=== PATIENT | male | born 1950 | race Caucasian/White ===

== ENCOUNTER 2016-10-21 12:45 | Emergency (ER) | payer OTHER, MEDICAID ==
[~2016-10-21] VITALS: Ht 170.2 cm; Wt 70.0 kg
[~2016-10-21 12:45] MED LIST: ASPI81 PO; ATOR10 PO; INDO50CA PO; LOSA25 PO; NEXI20CA PO; WARF5 PO
[2016-10-21 12:55] VITALS: BP 194/92; PULSE 62; RESP 19; TEMP 98.2; O2SAT 99
[2016-10-21] MEDS ORDERED: TETANUS/DIPHTHERIA TOXOID ADULT 0.5 ML VIAL IM ONE (13:15)
[2016-10-21 13:40] VITALS: BP 186/89; PULSE 64; RESP 18; O2SAT 97
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
[2016-10-21] MEDS ORDERED: LIDOCAINE HCL 1% 50 ML VIAL INFIL ONE (14:00)
[2016-10-21] MEDS ORDERED: LIDOCAINE 2%/EPINEPHrine 1:100,000 30ML MDV INFIL ONE (14:00)
--- NOTE | 2016-10-21 14:29 | PD ---
Physical Exam Narrative I was asked by Dr. Kat repair patient's laceration. Please see her documentation for full H&P. Data Data Last Documented VS Vital Signs Date Time Temp Pulse Resp B/P Pulse Ox O2 Delivery O2 Flow Rate FiO2 10/21/16 13:40 64 18 186/89 97 Room Air 10/21/16 12:55 98.2 Orders Tetanus/Diphtheria Tox Adult (Tetanus/Di (10/21/16 13:15) Lidocai-Epi 2%-1:100,000 Inj (Xylocaine- (10/21/16 14:00) Lidocaine 1% Inj (50 Ml) (Xylocaine 1% I (10/21/16 14:00) MDM Supervised Visit with MITCHEL: No Procedures Procedure Narrative LACERATION REPAIR LOCATION: Scalp LENGTH: Approximately 7.5 cm in total length highly irregular shaped NUMBER OF STITCHES/LUIS: 9 [place] REPAIR: Verbal consent was obtained. The area of the laceration was cleaned and prepped. The laceration was infiltrated with lidocaine without epi. The wound was copiously irrigated and explored without evidence of foreign body, bony involvement, ligament injury, tendon injury, or neurovascular injury. The wound was closed using luis. This was a single layer repair. A sterile dressing was applied by nurse. The patient was advised to keep the affected area as clean and dry as possible using soap and water. There were no complications. Patient tolerated the procedure well. LACERATION REPAIR LOCATION: Scalp LENGTH: Approximately 2.5 cm in total length NUMBER OF STITCHES/LUIS: 3 [place] REPAIR: Verbal consent was obtained. The area of the laceration was cleaned and prepped. The laceration was infiltrated with lidocaine without epi. The wound was copiously irrigated and explored without evidence of foreign body, bony involvement, ligament injury, tendon injury, or neurovascular injury. The wound was closed using luis. This was a single layer repair. A sterile dressing was applied by nurse. The patient was advised to keep the affected area as clean and dry as possible using soap and water. There were no complications. Patient tolerated the procedure well. LACERATION REPAIR LOCATION: Left lateral elbow LENGTH: Approximately 1.5 cm in total length NUMBER OF STITCHES/LUIS: 2 [place] REPAIR: Verbal consent was obtained. The area of the laceration was cleaned and prepped. The laceration was infiltrated with lidocaine without epi. The wound was copiously irrigated and explored without evidence of foreign body, bony involvement, ligament injury, tendon injury, or neurovascular injury. The wound was closed using luis. This was a single layer repair. A sterile dressing was applied by nurse. The patient was advised to keep the affected area as clean and dry as possible using soap and water. There were no complications. Patient tolerated the procedure well. Diagnosis Primary Impression: Scalp laceration Qualified Code: S01.01XA - Scalp laceration, initial encounter Patient Instructions: General Instructions, Laceration (DC) Additional Instruction: Clean the wound twice daily with soap and water. Apply a thin layer of Neosporin ointment after you wash it. See your doctor in 7 days for suture removal. Seek care sooner for redness, drainage, warmth, unusual pain. Disposition: 01 DISCHARGE HOME Condition: Stable Nitin Houston Oct 21, 2016 14:29
[2016-10-21] MEDS ORDERED: ASPI-110 PO (14:55)
[2016-10-21] MEDS ORDERED: OMEP20TA PO (14:55)
[2016-10-21] MEDS ORDERED: LOSA25TA PO (14:55)
[2016-10-21] MEDS ORDERED: BACL20TA PO (14:55)
[2016-10-21] MEDS ORDERED: TAMS0.4C4 PO (14:55)
[2016-10-21] MEDS ORDERED: ATOR10TA15 PO (14:55)
[2016-10-21 15:09] VITALS: BP 167/70
== END 2016-10-21 15:10 | disposition home or self-care (01) ==
LOC: NEPD 12:45
DX: S01.01XA Laceration without foreign body of scalp, initial encounter (principal); V59.9XXA Occupant (driver) (passenger) of pick-up truck or van injured in unspecified traffic accident, initial encounter; Z23 Encounter for immunization
CPT/HCPCS: 12001; 12004; 90471; 90714